=== PATIENT | female | born 1945 | race Caucasian/White ===

== ENCOUNTER 2020-08-20 13:53 | Emergency (ER) | payer OTHER ==
[~2020-08-20] VITALS: Wt 65.3 kg
[2020-08-20] VITALS (8 sets, daily range): BP systolic 76–99; BP diastolic 49–58
[2020-08-20 14:38] LABS: MEAN CELL VOLUME 100.5 fl (81.0-99.0); MEAN CORPUSCULAR HGB 33.7 pg (27.0-31.0); MEAN CORPUSCULAR HGB CONC 33.5 g/dl (33.0-37.0); MEAN PLATELET VOLUME 11.7 fl (9.6-12.3); PLATELET COUNT AUTOMATED 92 10*3/uL (130-400); RED BLOOD COUNT 1.99 10*6/uL (4.10-5.10); RED CELL DISTRI WIDTH 14.9 % (0-14.5); WHITE BLOOD COUNT 14.8 10*3/uL (4.8-10.8)
[2020-08-20 14:52] LABS: ALBUMIN 1.2 gm/dl (3.1-4.5); ALKALINE PHOSPHATASE 663 U/L (45-117); BUN 28 mg/dl (7-24); CHLORIDE 100 mmol/L (98-107); CREATININE 1.01 mg/dL (0.55-1.02); POTASSIUM 4.3 mmol/L (3.5-5.1); SGOT/AST 33 IU/L (3-35); SGPT/ALT 38 U/L (12-78); SODIUM 131 mmol/L (136-145); TOTAL PROTEIN 4.1 gm/dL (6.4-8.2)
[2020-08-20 15:06] LABS: STOMATOCYTE FEW; TOTAL CELLS COUNTED 100 #CELLS
[2020-08-20 15:08] LABS: MICROCYTOSIS SLIGHT; PLATELET SUFFICIENCY LOW (NORMAL)
== END 2020-08-20 22:10 | disposition short-term general hospital (02) ==
LOC: ED 13:53
PROVIDERS: Student in an Organized Health Care Education/Training Program
DX: A41.9 Sepsis, unspecified organism (principal); R65.20 Severe sepsis without septic shock; N17.9 Acute kidney failure, unspecified; J90 Pleural effusion, not elsewhere classified; D53.9 Nutritional anemia, unspecified; K86.9 Disease of pancreas, unspecified; E43 Unspecified severe protein-calorie malnutrition; Z98.890 Other specified postprocedural states; Z85.07 Personal history of malignant neoplasm of pancreas